=== PATIENT | male | born 2000 | race Caucasian/White ===

== ENCOUNTER → 2020-12-27 | Outpatient (CLI) | payer OTHER | LOC: EXRD 12:52 | DX: R22.2 Localized swelling, mass and lump, trunk (principal) | CPT/HCPCS: 76857 ==

== ENCOUNTER → 2021-09-15 | Outpatient (CLI) | payer OTHER | LOC: US 12:00 | DX: M79.89 Other specified soft tissue disorders (principal) | CPT/HCPCS: 93971 ==